=== PATIENT | female | born 1960 | race Caucasian/White ===

== ENCOUNTER → 2016-07-03 | Outpatient (CLI) | payer BC ==
[~2016-07-03] MED LIST: IBUP200C11 PO
--- NOTE | 2016-07-03 22:46 | HKNOTE ---
DATE OF SERVICE: 07/03/2016 The patient here for preoperative evaluation. She is scheduled to have right total hip replacement by the anterior approach on 07/04/2016. She has been cleared for surgery by Dr. Al So . Numerous questions were asked and answered. She has read my booklet on hip arthritis and hip rep lacement surgery. She has also seen my website, [employer]. She comes in with her fiance. S he understands the risks associated with using hospital blood. She is agreeable to using hospital b lood if needed. Numerous questions were asked and answered. The patient is remarkably flexible, an d I discussed with her that my chief worry is that she is going to dislocate her hip from putting th e hip through at extreme range of motion. Restrictions were discussed with her. Dictated By: RODOLFO WESLEY/JOE Conf#: [id number] DID#: [id number]
== END | disposition home or self-care (01) ==
LOC: HKI 14:17
DX: Z01.818 Encounter for other preprocedural examination (principal)
CPT/HCPCS: G0463

== ENCOUNTER 2016-07-04 05:42 | Inpatient (IN) | payer BC ==
--- NOTE | 2016-07-02 14:56 | PREOPHP ---
DATE OF ADMISSION: 07/04/2016 PREOPERATIVE INTERNAL MEDICINE CONSULTATION, MEDICAL HISTORY AND PHYSICAL The patient to have surgery with Dr. Jett Henao 07/04/2016. REASON FOR CONSULTATION: Consultation requested by Dr. Jett Henao for medical evaluation an d clearance of a 56-year-old woman about to undergo surgery on her right hip. Thank you, Dr. Henao, for allowing us to participate in the care of this patient. HISTORY OF PRESENT ILLNESS: Anisha Maxwell, a 56-year-old woman, problems with her hip, currently arcadio ng admitted for correction of the above problem. PAST MEDICAL HISTORY: Only prior surgeries have been a breast augmentation. Other than that, has h ad no surgeries, had 1 delivery which was vaginal. Other than that, has been doing relatively well. She has had, as mentioned above, no broken bones, no medical hospitalizations, and only takes p.r. n. medications for allergies and itching and pain. ALLERGIES: SHE IS NOT ALLERGIC TO ANY MEDICATIONS. SOCIAL HISTORY: The patient is single, has 1 son. She does not smoke. Alcohol socially. No coffe e. Usually has no difficulty sleeping at night and is employed. FAMILY HISTORY: Both parents are alive and well. Father is 81. Mother 79. Two brothers are also alive, one has blood pressure issues. Other than that, there is no family history of diabetes. Onl y hypertension. There is cancer in the family as well. REVIEW OF SYSTEMS: HEENT: Periodic tension headaches. CARDIORESPIRATORY: Denies any chest pain or shortness of breath. GASTROINTESTINAL: No melena or hematemesis. GENITOURINARY: No urgency, frequency. GYNECOLOGIC: Postmenopause. Up to date with her hearing aid fitter. MUSCULOSKELETAL: Positive for right hip pain. NEUROPSYCHIATRIC: Unremarkable. GENERAL HEALTH: As above. PHYSICAL EXAMINATION: VITAL SIGNS: The patient's blood pressure was 146/76, pulse was 92, respirations were 18, temperatu re 98.7, height 5 feet 3-1/2 inches, weight 127 pounds. GENERAL: The patient was noted to be a well-developed, well-nourished female, alert and cooperative , in no apparent acute distress, oriented to time, place, and person. HEAD, EARS, EYES, NOSE, AND THROAT: Head was atraumatic. Eyes: Pupils were equal, reactive to lig ht and accommodation. Fundi were benign. Tympanic membranes were unremarkable. Nose was negative. Mouth was unremarkable. Fair oral hygiene was present. NECK: Supple without any rigidity. Trachea was midline. Thyroid was unremarkable. Neck veins wer e flat. Carotid pulses were equal. No bruits were heard. BACK: Unremarkable. CHEST: Symmetrical breasts and axillary exam revealed bilateral breast implants, otherwise no merrill s being palpable. LUNGS: Clear to percussion and auscultation. HEART: PMI is in the fifth intercostal space at the midclavicular line. Regular sinus rhythm was n oted. No significant murmurs, rubs, or gallops being elicited. ABDOMEN: Soft, good bowel sounds were noted. No significant organomegaly, masses, or tenderness. GENITALIA: Normal female external genitalia. PELVIC/RECTAL: Per hearing aid fitter, unremarkable. EXTREMITIES: Not revealing clubbing, edema, or cyanosis. Peripheral pulses were physiologic. SKIN: Moist and warm without any eruptions. No gross lymphadenopathy was noted. NEUROLOGIC: Grossly intact. IMPRESSION: 1. Degenerative joint disease, right hip. 2. Allergies. 3. Tension headaches. 4. Cervical disk disease. 5. Stable health. LABORATORY DATA: Review of laboratory and other data revealed the following: The patient's ceramic chemist ne revealed normal electrolytes, random glucose of 120, normal BUN, creatinine, liver function ron ts, CBC, UA, PT, and PTT were normal. EKG revealed a rate of 90, otherwise normal, and chest x-ray done recently was within normal limits. DISCUSSION: Dr. Henao, I see no contraindication to this patient undergoing current proposed s urgery under desired form of anesthesia and will follow her along with you during her stay at [facility]. Thank you again, Dr. Henao, for allowing us to participate in care of this patient. Dictated By: PARIS WINN/JOE Conf#: [id number] DID#: [id number]
[2016-07-03 17:00] VITALS: BMI 48.0
[~2016-07-04] VITALS: Ht 160 cm; Wt 56.3 kg
[2016-07-04] VITALS (16 sets, daily range): BP systolic 81–133; BP diastolic 51–83; PULSE 64–144; RESP 12–22; Ht 160 cm; Wt 56.3 kg
[2016-07-04] MEDS ORDERED: VANCOMYCIN 1 GM (PMX) 250 ML IVPB ONE (06:00)
[2016-07-04] MEDS ORDERED: LACTATED RINGER'S 1,000 ML IV* SCH (06:00)
[2016-07-04] MEDS ORDERED: TRANEXAMIC ACID IVPB ONE (06:00)
[2016-07-04] MEDS ORDERED: ACETAMINOPHEN 1000MG/100ML IV 100 ML IVPB ONE (06:00)
[2016-07-04] MEDS ORDERED: ONDANSETRON 4 MG INJ IV ONE (06:00)
[2016-07-04] MEDS ORDERED: DEXAMETHASONE 4 MG/ML 1 ML INJ IV ONE (06:00)
[2016-07-04] MEDS ORDERED: SOD CHLORIDE 0.9% IVPB ONE (06:00)
[2016-07-04] MEDS ORDERED: oxyCODONE (CR) 10 MG TAB [oxyCONTIN] PO ONE (06:00)
[2016-07-04] MEDS ORDERED: LANSOPRAZOLE 30 MG CAP PO ONE (06:00)
[2016-07-04] MEDS ORDERED: CELECOXIB 200 MG CAP PO ONE (06:00)
[2016-07-04] MEDS ORDERED: ROPIVACAINE 0.2% 100ML BAG ONE (07:16)
[2016-07-04] MEDS ORDERED: GELATIN SIZE 100 SPONGE ONE (07:16)
[2016-07-04] MEDS ORDERED: HEPARIN 1000 UNITS/ML 10 ML INJ ONE (07:16)
[2016-07-04] MEDS ORDERED: VANCOMYCIN 1 GM INJ ONE (07:17)
[2016-07-04] MEDS ORDERED: POLYMYXIN B 500000 UNIT INJ ONE (07:17)
[2016-07-04] MEDS ORDERED: MIDAZOLAM 1 MG/ML 2 ML INJ ONE (07:42)
[2016-07-04] MEDS ORDERED: SOD CHLORIDE 0.9% IRR SCH ×2 (08:00)
[2016-07-04] MEDS ORDERED: TRANEXAMIC ACID IRR SCH ×2 (08:00)
[2016-07-04] MEDS ORDERED: HIP PAIN COCKTAIL VANCO INJ SCH ×7 (08:00)
[2016-07-04] MEDS ORDERED: PHENYLephrine (100 MCG/ML) 5ML SYG ONE ×2 (08:11→10:44)
[2016-07-04] MEDS ORDERED: SENNA/DOCUSATE NA (8.6MG/50MG) TAB PO PRN (08:30)
[2016-07-04] MEDS ORDERED: MEPERIDINE 10 MG/ML 30 ML PCA IV PRN (08:30)
[2016-07-04] MEDS ORDERED: DOCUSATE SODIUM 100 MG CAP PO ONE (08:30)
[2016-07-04] MEDS ORDERED: NA PHOSPHATE/BIPHOS 133 ML ENEMA PR PRN (08:30)
[2016-07-04] MEDS ORDERED: BETHANECHOL 25 MG TAB PO PRN (08:30)
[2016-07-04] MEDS ORDERED: oxyCODONE 5 MG TAB PO PRN (08:30)
[2016-07-04] MEDS ORDERED: HYDROmorphONE 0.2 MG/ML PCA IV PRN (08:30)
[2016-07-04] MEDS ORDERED: MAGNESIUM HYDROXIDE 30ML CUP PO PRN (08:30)
[2016-07-04] MEDS ORDERED: NACL 0.9% 3 ML SYG IV SCH (08:30)
[2016-07-04] MEDS ORDERED: ASPIRIN (EC) 325 MG TAB PO ONE (08:30)
[2016-07-04] MEDS ORDERED: DIPHENHYDRAMINE 50 MG INJ IM PRN (08:30)
[2016-07-04] MEDS ORDERED: NALOXONE (0.4 MG/ML) INJ IV PRN ×2 (08:30→10:30)
[2016-07-04] MEDS ORDERED: BISACODYL 10 MG SUPP PR PRN (08:30)
[2016-07-04] MEDS ORDERED: ROPIVACAINE 0.2% 20 ML VIAL ONE (08:49)
[2016-07-04] MEDS: ACETAMINOPHEN 1000MG/100ML IV 100 ML IVPB SCH ×2 (09:00→17:40)
[2016-07-04] MEDS ORDERED: BACITRACIN 50000 UNITS INJ IRR ONE (09:11)
[2016-07-04] MEDS ORDERED: DIPHENHYDRAMINE 50 MG INJ IV PRN (10:30)
[2016-07-04] MEDS ORDERED: MEPERIDINE 25 MG INJ IV PRN (10:30)
[2016-07-04] MEDS ORDERED: HYDROmorphONE (0.2 MG/ML) 10ML SYG IV PRN ×2 (10:30)
[2016-07-04] MEDS ORDERED: ONDANSETRON 4 MG INJ IV PRN (10:30)
[2016-07-04] MEDS ORDERED: FENTAnyl 50 MCG/ML VIAL IV PRN (10:30)
[2016-07-04] MEDS ORDERED: LIDOCAINE 2% (SDV) 5 ML INJ ONE (11:27)
[2016-07-04] MEDS ORDERED: PROPOFOL 20 ML ONE (11:27)
[2016-07-04] MEDS ORDERED: ROCURONIUM 50 MG INJ ONE (11:27)
[2016-07-04] MEDS ORDERED: DEXAMETHASONE 4 MG/ML 1 ML INJ ONE (11:28)
[2016-07-04] MEDS ORDERED: ONDANSETRON 4 MG INJ ONE (11:28)
[2016-07-04] MEDS ORDERED: METOCLOPRAMIDE 10 MG INJ ONE (11:28)
--- NOTE | 2016-07-04 11:47 | RADRPT ---
PROCEDURE: Right hip x-rays series CLINICAL INDICATION: Arthroplasty TECHNIQUE: 5 images obtained intraoperatively during a hip arthroplasty procedure. COMPARISON: None available FINDINGS: 5 images were obtained intraoperatively for localization during a hip hemiarthroplasty. 24 seconds of fluoroscopy time was utilized by the physician Dr. Henao during the procedure in progress. IMPRESSION: 5 images and 24 seconds of fluoroscopy used intraoperatively for localization during a hip hemiarthr oplasty. .Christopher Lincoln MD, MD Date Time Electronically viewed and signed by .Christopher Lincoln MD, on 07/04/2016 11:47 .B/
[2016-07-04] MEDS: ONDANSETRON 4 MG INJ IV SCH ×3 (12:17→21:14)
[2016-07-04] MEDS: CEFAZOLIN 1 GM/50 ML (PMX) 50 ML IVPB SCH ×2 (12:17→18:25)
--- NOTE | 2016-07-04 12:40 | RADRPT ---
PROCEDURE: XR Right Hip. CLINICAL INDICATION: Right hip pain. Postop. TECHNIQUE: Single frontal view. COMPARISON: Intraoperative imaging done earlier the same day. FINDINGS: There is a right hip total arthroplasty. This appears satisfactory with no fracture, dislocation or loosening. There is no lytic lesion. Surgical drains and gas are noted in the soft tissues from the recent surgery. IMPRESSION: 1. Satisfactory postoperative appearance of the right hip. RPTAT: QQ .Abe Gill MD, MD Date Time Electronically viewed and signed by .Abe Gill MD, MD on 07/04/2016 12:40 .R/
[2016-07-04 13:16] LABS: ADD UMIC YES; URINE BILIRUBIN (Dip) NEGATIVE (NEGATIVE); URINE BLOOD (Dip) 1+ (NEGATIVE); URINE COLOR LT. YELLOW (YELLOW); URINE GLUCOSE (Dip) NEGATIVE (NEGATIVE); URINE KETONES (Dip) 40 (NEGATIVE); URINE LEUKOCYTE ESTERASE (Dip) NEGATIVE (NEGATIVE); URINE NITRITE (Dip) NEGATIVE (NEGATIVE); URINE TOTAL PROTEIN (Dip) NEGATIVE (NEGATIVE); URINE UROBILINOGEN (Dip) 0.2 E.U./dL (0.1-1.0)
[2016-07-04 14:02] LABS: BACTERIA,URINE FEW
--- NOTE | 2016-07-04 14:11 | OPR ---
DATE OF OPERATION: 07/04/2016 SURGEON: Jett Henao MD SHOE STAINER: ANESTHESIOLOGIST: Dr. Mcfarland PREOPERATIVE DIAGNOSES: 1. Severe degenerative osteoarthritis of the right hip. 2. Congenital dysplasia of the right hip. POSTOPERATIVE DIAGNOSES: 1. Severe degenerative osteoarthritis of the right hip. 2. Congenital dysplasia of the right hip. OPERATION PERFORMED: Right total hip replacement by the anterior route. Computer-assisted surgery using the TransferGo digital imaging computer. FINDINGS AT SURGERY: The patient was found to have exceedingly severe degenerative osteoarthritis o f the right hip. The femoral head showed evidence of osteonecrosis as well as severe degenerative c hanges affecting the weightbearing surface. The patient's bone quality was satisfactory for a femal e of her age. JUSTIFICATION FOR SURGERY: Patient has endstage osteoarthritis of the right hip. There can be no s cientific expectation that any further conservative measures would give this patient any relief from her incapacitating pain. DESCRIPTION OF PROCEDURE: The patient was given intravenous antibiotics approximately 1 hour prior to surgery. An epidural anesthetic was initiated in the pre-anesthesia area. The patient was then moved to the operating room and transferred to a [place] table. General anesthesia was induced with in tubation and full muscle paralysis. Plain and digital x-rays were obtained of the pelvis and the op erative hip and stored in the computer. Measurements were made on the operative hip to determine th e degree of leg length and offset. The intent was to use the operative hip as the basic template fo r restoring the geometry of the operative hip (i.e., the opposite hip was not used as the template). On the pelvic x-ray, the correct orientation of the pelvis for surgery was determined. Note that the TransferGo computer was used throughout for making all leg length and angular measurements. The operative thigh, leg and lower abdomen were prepared and draped in the usual sterile fashion. A n oblique incision was made over the lateral aspect of the right thigh. Incision commenced 3 cm dis mihaela and 3 cm posterior to the anterior superior iliac spine. The total length of the incision was a pproximately 18 mm. The incision was deepened through the subcutaneous fat to expose the fascia ove r the tensor muscle. The fascia was opened to expose the muscle. Bleeding points were cauterized t hroughout by diathermic coagulation. The fascia over the tensor was incised by blunt and digital re section. The interval was found between the tensor muscle and the anterior capsule as well as the r ectus muscle. Superior and inferior cobra retractors were now placed outside the capsule to expose the anterior surface of the capsule. A third cobra retractor was placed over the brim of the pelvis . The reflected head of rectus was first elevated with a Meyer elevator. The anterior capsule was incised along the length of the intratrochanteric line with the hip externa lly rotated. The incision extended around the proximal femur to the lesser trochanter. The incisio n was now extended vertically to the edge of the acetabulum. The capsular incision was extended pema ng the anteromedial extent of the anterior rim of the acetabulum. A cobra retractor was placed insi de the capsule medially. The lateral aspect of the anterior capsule was incised and a second cobra retractor was placed inside the capsule around the superior femoral neck. Three turns of traction were placed on the operative leg. The femoral head was now freed from the a cetabulum using a skid. The remaining superior and anterior capsule was incised and the femoral nec k was then incised. A corkscrew was inserted into the femoral head from the anterior aspect of the femoral head. Using the corkscrew as a handle and using a skid, the hip was now completely dislocat ed. The hip was reduced. An osteotomy of the femoral neck was made at the location determined by preope rative templating. The femoral head was now removed. By suitable retraction, the acetabulum was exposed. Soft tissues around the folia removed. The janet tabulum was enlarged and deepened to 47 mm. Note that the socket was extremely shallow, and in orde r to get coverage for the acetabular component, the reaming had to be taken right to the medial wall of the acetabulum. At the very apex of the acetabular cavity, there was a soft tissue membrane ind icating that we had just reached the medial wall. Powdered bone grafts were obtained from the femor al head and packed into this space. The last acetabular reamings were inserted under fluoroscopic c ontrol and the correct orientation of the socket and if the reaming were determined by the [employer] and direct x-ray visualization. The acetabular component was now installed with an orientat ion of 34 degrees of abduction and 24 degrees of anteversion. The TransferGo computer was used for bucky ing these measurements. The proximal femur was now exposed by hyperextending and adducting the hip joint. A retractor was p laced posterior to the femoral neck so as to retract the proximal femur laterally. A hook was then placed around the proximal femur deep to the tensor muscle and as proximal as possible. The hook wa s attached to the table endy and the femur was elevated as high as we could go without force being a pplied to the femur. The superior and proximal femoral capsules were now incised. The cobra retractor was placed behind the posterior rim of the acetabulum. A Steinmann pin was driven into the pelvis superior to the janet tabulum to retract the soft tissues. A third cobra was placed over the rim of the acetabulum and th e fourth cobra was placed along the medial aspect of the acetabulum. This allowed further mobilizat ion of the proximal femur. A canal finder was used to find the canal. The proximal femur is now br oached starting with the smallest broach and progressively increasing until we felt we could go no f urther. At this point, the size 10 broach was left in place and the hip was reduced. X-rays were t aken and these x-rays showed that we could broach up 1 more size. The hip was reduced with the shor test femoral head and neck assembly and measurements were made to determine what neck lengths and of fset changes were still needed. The hip was dislocated. The next size broach (size 11) was now installed. This broach was found to be completely stable. The hip was reduced using the +9 mm femoral head and neck assembly and the s ize 11 broach. Measurements indicated that the leg lengths were totally unchanged. The offset was totally unchanged. This was felt to be an appropriate combination. The foot was now disconnected f rom the [place] table and covered with sterile drapes. The hip was then put through an extreme range o f motion and found to be completely stable at the limits of motion. This showed that the hip was to tally stable in the anterior aspect of the socket. As trial components were removed, the permanent plastic acetabular component was installed. This wa s followed by installing the permanent femoral component. The table was now returned to a neutral p osition and the hip was dislocated. The wound was frequently irrigated throughout the procedure wit h normal saline containing antibiotics using pulsatile lavage. The permanent femoral component was installed, it fit perfectly and appeared to be completely stable . The permanent femoral head was installed and the hip was reduced. Superficial and deep Hemovac drains were placed. Soft tissues around the hip were injected with a m ixture of Naropin, Toradol, morphine and clonidine for pain management. The deep tissues were now c losed using interrupted Vicryl. The subcutaneous tissues were closed using a Quill type stitch. Th e skin was closed using sierra. The usual sterile dressings were applied and an abduction pillow was placed between the patient's le gs before transferring her to a [facility]. The patient returned to the recovery room in stable conditi on. There were no problems or complications throughout this operation as far as is known. Although multiple x-rays were taken in the operating room and saved, the permanent x-ray record was obtained in the recovery room to be sure that the hip did not dislocate in transfer. IMPLANT COMPONENT INFORMATION: Femoral component: KA11 [place]. Acetabular component: Femoral head size: 32 mm. Femoral neck size: +9 mm. Implant tank hoop bender: [employer] [place], [place]. Leg length: Unchanged. Offset: Unchanged. Reinfusion was used. The total blood loss was approximately 350 mL and 150 were recovered and reinf used as packed cells. Dictated By: JETT WESLEY/JOE Conf#: [id number] DID#: [id number]
[2016-07-04] MEDS: DEXTROSE 5%-LR 1,000 ML IV SCH ×2 (14:32→20:52)
--- NOTE | 2016-07-04 14:56 | CONS ---
DATE OF ADMISSION: 07/04/2016 DATE OF CONSULTATION: 07/04/2016 POSTOPERATIVE CONSULTATION FOLLOWUP The patient had surgery with Dr. Jett Henao 07/04/2016. HISTORY OF PRESENT ILLNESS: The patient seen in the recovery room, arousable, answers questions myron ropriately. No particular issues at this point in time. OBJECTIVE: VITAL SIGNS: The patient is afebrile, pulse is 80, respirations 18, blood pressure 122/72, O2 sat 9 9%. HEENT: Unremarkable. LUNGS: Clear. HEART: Reveals a regular rhythm. The rest of the exam is unremarkable. IMPRESSION: 1. Status post total hip replacement on the right side. 2. History of allergies and tension headaches and cervical disk disease, stable. 3. Stable health. DISCUSSION: Plan per Dr. Henao, will be going up to floor care. We will follow her along with you during her stay at [facility]. Thank you again, Dr. Henao, for allowing us to participate in the care of this patient. Dictated By: PARIS MOTLEY MD SS/NTS Conf#: [id number] DID#: [id number]
[2016-07-04] MEDS ORDERED: BACITRACIN 50000 UNITS INJ ONE (17:09)
[2016-07-04] MEDS: oxyCODONE 5 MG TAB PO PRN ×2 (19:29→22:49)
[2016-07-04] MEDS: ZOLPIDEM 5 MG TAB PO PRN (23:32)
[2016-07-05 00:16] VITALS: BP 111/64; RESP 18
[2016-07-05] MEDS: CEFAZOLIN 1 GM/50 ML (PMX) 50 ML IVPB SCH (00:42)
[2016-07-05] MEDS: ACETAMINOPHEN 1000MG/100ML IV 100 ML IVPB SCH ×3 (00:42→17:00)
[2016-07-05] MEDS: ONDANSETRON 4 MG INJ IV SCH ×2 (03:00→06:47)
[2016-07-05] MEDS: oxyCODONE 5 MG TAB PO PRN ×5 (04:44→19:28)
[2016-07-05] MEDS: DEXTROSE 5%-LR 1,000 ML IV SCH ×2 (04:45→21:52)
[2016-07-05 05:20] LABS: BASOPHILS % 0.4 % (0.0-2.0); EOSINOPHILS % 0.1 % (0.0-7.0); HEMATOCRIT 24.9 % (37.0-47.0); HEMOGLOBIN 8.5 g/dl (12.0-16.0); LYMPHOCYTES # 1.7 10^3/ul (0.8-2.9); LYMPHOCYTES % 21.7 % (15.0-51.0); MEAN CORPUSCULAR HEMOGLOBIN 35.5 pg (29.0-33.0); MEAN CORPUSCULAR HGB CONC 34.2 g/dl (32.0-37.0); MEAN CORPUSCULAR VOLUME 103.7 fl (82.0-101.0); MEAN PLATELET VOLUME 7.7 fl (7.4-10.4); MONOCYTE # 0.7 10^3/ul (0.3-0.9); MONOCYTES % 9.2 % (0.0-11.0); NEUTROPHIL # 5.3 10^3/ul (1.6-7.5); NEUTROPHILS % 68.6 % (39.0-77.0); PLATELET COUNT 179 10^3/UL (140-440); RED CELL DISTRIBUTION WIDTH 14.2 % (11.5-14.5); UNCORRECTED WBC 7.8 10^3/ul (4.8-10.8); WHITE BLOOD COUNT 7.8 10^3/ul (4.8-10.8)
[2016-07-05 05:55] LABS: CONDITION 1; LH ANALYZER COMMENTS 1
[2016-07-05] MEDS ORDERED: KETOROLAC 30 MG INJ INJ PRN (06:00)
[2016-07-05] MEDS ORDERED: BUPIVACAINE 0.25%/EPI (SDV) 30 ML INJ INJ PRN (06:00)
[2016-07-05] MEDS: DEXAMETHASONE 4 MG/ML 1 ML INJ IV SCH (06:47)
[2016-07-05] MEDS: PANTOPRAZOLE (EC) 40 MG TAB PO SCH (06:47)
[2016-07-05 07:15] VITALS: BP 106/62; RESP 18
[2016-07-05] MEDS: ASPIRIN (EC) 325 MG TAB PO SCH ×2 (08:49→19:34)
[2016-07-05] MEDS: FERROUS FUMARATE (SR) TAB PO SCH ×2 (08:50→19:30)
[2016-07-05] MEDS: CELECOXIB 200 MG CAP PO SCH ×2 (08:50→19:28)
[2016-07-05] MEDS: DOCUSATE SODIUM 100 MG CAP PO SCH ×2 (09:00→19:29)
--- NOTE | 2016-07-05 17:08 | PN ---
DATE: 07/05/2016 Postoperative day #1: Patient underwent a right hip replacement yesterday. She was up and about with physical therapy yesterday. She also had physical therapy this morning. She has had some pain in the right thigh. Otherwise, she is making good progress. She believes she can get in and out o f bed by herself at this point if she wanted to, but she has not done so yet. On physical examination, the patient's wound was clean and healing well. New dressings were applie d. The Hemovac drain was removed. LABORATORY DATA: Hemoglobin 8.5, white cell count 7.8. Temperature normal. Dictated By: RODOLFO WESLEY/JOE Conf#: [id number] DID#: [id number]
[2016-07-05 19:36] VITALS: BP 115/73; PULSE 80; RESP 17
[2016-07-05] MEDS: ZOLPIDEM 5 MG TAB PO PRN (20:08)
[2016-07-06] MEDS: oxyCODONE 5 MG TAB PO PRN ×4 (00:35→12:25)
[2016-07-06] MEDS: ACETAMINOPHEN 1000MG/100ML IV 100 ML IVPB SCH (01:00)
[2016-07-06 05:13] LABS: BASOPHILS % 0.3 % (0.0-2.0); EOSINOPHILS # 0.1 10^3/ul (0.0-0.5); HEMATOCRIT 23.9 % (37.0-47.0); HEMOGLOBIN 8.2 g/dl (12.0-16.0); LYMPHOCYTES # 2.1 10^3/ul (0.8-2.9); LYMPHOCYTES % 31.6 % (15.0-51.0); MEAN CORPUSCULAR HEMOGLOBIN 35.9 pg (29.0-33.0); MEAN CORPUSCULAR HGB CONC 34.5 g/dl (32.0-37.0); MEAN CORPUSCULAR VOLUME 104.2 fl (82.0-101.0); MEAN PLATELET VOLUME 7.8 fl (7.4-10.4); MONOCYTE # 0.7 10^3/ul (0.3-0.9); MONOCYTES % 10.1 % (0.0-11.0); NEUTROPHIL # 3.7 10^3/ul (1.6-7.5); PLATELET COUNT 155 10^3/UL (140-440); RED BLOOD COUNT 2.29 10^6/ul (4.20-5.40); RED CELL DISTRIBUTION WIDTH 13.9 % (11.5-14.5); UNCORRECTED WBC 6.6 10^3/ul (4.8-10.8); WHITE BLOOD COUNT 6.6 10^3/ul (4.8-10.8)
[2016-07-06 05:24] LABS: CONDITION 1
[2016-07-06 05:25] LABS: LH ANALYZER COMMENTS 1
[2016-07-06 07:40] VITALS: BP 96/61; RESP 16
[2016-07-06] MEDS: DOCUSATE SODIUM 100 MG CAP PO SCH (09:12)
[2016-07-06] MEDS: CELECOXIB 200 MG CAP PO SCH (09:13)
[2016-07-06] MEDS: ASPIRIN (EC) 325 MG TAB PO SCH (09:13)
[2016-07-06] MEDS: FERROUS FUMARATE (SR) TAB PO SCH (09:13)
[2016-07-06] MEDS: DEXAMETHASONE 4 MG/ML 1 ML INJ IV SCH (09:13)
[2016-07-06] MEDS: PANTOPRAZOLE (EC) 40 MG TAB PO SCH (09:13)
[2016-07-06] MEDS: DEXTROSE 5%-LR 1,000 ML IV SCH (10:22)
[2016-07-06 11:25] VITALS: BP 103/61; RESP 16
--- NOTE | 2016-07-06 11:42 | CONS ---
Date/Time of Note Date/Time of Note DATE: 07/06/16 TIME: 11:36 Assessment/Plan Assessment/Plan Problems: (1) History of total hip replacement Comment: Patient status post right total hip replacement. Clinically doing well. Episode this am during PT with tachypnea and light headedness. Now resolved. Hb 8 which may have contributed to episode. Will get ECG. If normal will continue to plan for scheduled discharge. Qualifiers: Laterality: right Qualified Code: Z96.641 - History of total hip replacement, right Consultation Date/Type/Reason Admit Date/Time Jul 04, 2016 at 05:42 Initial Consult Date 24 HR Interval Summary Free Text/Dictation Patient with episode of tachypnea during PT this morning. Now feeling better. Denies SOB, chest pain. States that since admission been on an extremely low carb diet. Exam/Review of Systems Vital Signs Vitals Vital Signs Date Time Temp Pulse Resp B/P Pulse Ox O2 Delivery O2 Flow Rate FiO2 07/06/16 11:25 97.5 74 16 103/61 93 07/05/16 19:36 Room Air 07/04/16 11:47 6.0 Intake and Output 07/05/16 07/05/16 07/06/16 14:59 22:59 06:59 Intake Total 150 ml 800 ml 300 ml Output Total 0 ml Balance 150 ml 800 ml 300 ml Exam Constitutional: alert, oriented, well developed Eyes: EOMI, PERRL, nl conjunctiva Neck: supple Respiratory: clear to auscultation Cardiovascular: regular rate and rhythm Gastrointestinal: soft Musculoskeletal: nl extremities to inspection Extremities: normal pulses Results Result Diagram: 07/06/16 0436 Results 24 hrs Laboratory Tests Test 07/06/16 04:36 Basophils # 0.0 Basophils % 0.3 Blood Morphology Comment Eosinophils # 0.1 Eosinophils % 1.0 Hematocrit 23.9 L Hemoglobin 8.2 L Lymphocytes # 2.1 Lymphocytes % 31.6 Mean Corpuscular Hemoglobin 35.9 H Mean Corpuscular Hemoglobin Concent 34.5 Mean Corpuscular Volume 104.2 H Mean Platelet Volume 7.8 Monocytes # 0.7 Monocytes % 10.1 Neutrophils # 3.7 Neutrophils % 57.0 Nucleated Red Blood Cells # 0.0 Nucleated Red Blood Cells % 0.0 Platelet Count 155 Red Blood Count 2.29 L Red Cell Distribution Width 13.9 White Blood Count 6.6 Medications Medications Current Medications Dextrose/Lactated Ringer's (D5-Lr) 1,000 ml @ 80 mls/hr [id number] IV Last administered on 07/05/16 04:45; Admin Dose 80 MLS/HR; Start 07/04/16 at 08:22 Oxycodone HCl (Roxicodone) 20 mg Q3H PRN PO PAIN LEVEL 8-10 Last administered on 07/06/16 09:12; Admin Dose 20 MG; Start 07/04/16 at 08:30 Oxycodone HCl (Roxicodone) 10 mg Q3H PRN PO PAIN LEVEL 4-7; Start 07/04/16 at 08:30 Zolpidem Tartrate (Ambien) 5 mg HS PRN PO INSOMNIA Last administered on 20:08; Admin Dose 5 MG; Start 07/04/16 at 08:30 Aspirin (Ecotrin) 325 mg BID PO Last administered on 07/06/16 09:13; Admin Dose 325 MG; Start 07/05/16 at 09:00 Celecoxib (Celebrex) 200 mg BID PO Last administered on 07/06/16 09:13; Admin Dose 200 MG; Start 07/05/16 at 09:00 Dexamethasone (Decadron) 4 mg DAILY@07 IV Last administered on 07/06/16 09:13 ; Admin Dose 4 MG; Start 07/05/16 at 07:00; Stop 07/08/16 at 06:59 Pantoprazole (Protonix Tab) 40 mg DAILY@06 PO Last administered on 07/06/16 09 :13; Admin Dose 40 MG; Start 07/05/16 at 06:00 Docusate Sodium/ Ferrous Fumarate (Yared-Sequels) 1 tab BID PO Last administered on 07/06/16 09:13; Admin Dose 1 TAB; Start 07/05/16 at 09:00 Docusate Sodium (Colace) 200 mg BID PO Last administered on 07/06/16 09:12; Admin Dose 200 MG; Start 07/05/16 at 09:00; Stop 07/07/16 at 21:01 Simethicone (Mylicon) 80 mg TID PRN PO DISTENSION/GAS/BLOATING; Start 07/04/16 at 08:30 Senna/Docusate Sodium (Senokot-S) 2 tab BID PRN PO CONSTIPATION; Start at 08:30 Magnesium Hydroxide (Milk Of Mag) 30 ml HS PRN PO CONSTIPATION; Start 07/04/16 at 08:30 Bisacodyl (Dulcolax Supp) 10 mg DAILY PRN NM CONSTIPATION; Start 07/04/16 at 08 :30 Sodium Biphosphate/ Sodium Phosphate (Fleet Enema) 133 ml DAILY PRN NM CONSTIPATION; Start 07/04/16 at 08:30 Diphenhydramine HCl (Benadryl) 25 mg Q4H PRN IM ITCHING OR RASH; Start at 08:30 Ketorolac Tromethamine (Toradol) 30 mg DAILY@06 PRN INJ ADMINSTER BY SURGEON ONLY; Start 07/05/16 at 06:00; Stop 07/09/16 at 05:59 Bupivacaine HCl/ Epinephrine Bitart (Marcaine 0.25%/ Epi (Sdv) 30 ml) 20 ml DAILY@06 PRN INJ ADMINSTER BY SURGEON ONLY; Start 07/05/16 at 06:00; Stop 07/09 at 05:59 Naloxone HCl (Narcan) 0.2 mg Q2M PRN IV DECREASED REPIRATORY RATE; Start at 08:30 Naloxone HCl (Narcan) 0.2 mg Q2M PRN IV FOR RESP RATE 8 OR LESS; Start at 10:30 MORIAH PEDRAZA MD Jul 06, 2016 11:42
--- NOTE | 2016-07-06 11:45 | PDOCDIS ---
Discharge Instructions CONDITION Patient Condition: Good HOME CARE INSTRUCTIONS: Diet Instructions: Regular ACTIVITY: Activity Restrictions: Slowly Increase Activity Rest between Activity Avoid heavy lifting Do not Drive Do not operate Machinery Do not operate Power Tool Avoid Heavy Housework Bathing Restrictions: Shower FOLLOW UP/APPOINTMENTS Appointments As per Dr. Carr instructions SCHOOL/WORK RELEASE May return to School/Work with: as per Dr. Henao's instructions MORIAH PEDRAZA MD Jul 06, 2016 11:45
--- NOTE | 2016-07-06 16:01 | PN ---
DATE: 07/06/2016 SUBJECTIVE: Patient is on her fourth day from her . She is making excellent progress. She is independent with her walker. She gets in and out of bed by herself. PHYSICAL EXAMINATION: The wound looks excellent. The dressings were changed. Temperature is normal . LABS: Hemoglobin is 12.5, white count 6.4. ASSESSMENT: Patient is to be discharged to home. She will be seen again in the office in 2 weeks' t [place]. Dictated By: RODOLFO WESLEY/JOE Conf#: [id number] DID#: [id number]
--- NOTE | 2016-07-06 16:42 | CONS ---
DATE OF ADMISSION: 07/04/2016 DATE OF CONSULTATION: 07/06/2016 HISTORY OF PRESENT ILLNESS: Patient is alert only complaint is that the surgical site has a little bit of pain, looking forward to going home, however. PHYSICAL EXAMINATION: VITAL SIGNS: Reveals the following: Temperature 97.5, pulse 74, respirations 16, blood pressure 10 3/61, O2 sat 93% on room air. HEENT: Unremarkable. LUNGS: Clear. HEART: Reveals a regular rhythm. The rest of the exam is unremarkable. IMPRESSION: 1. Status post total hip replacement on the right side. 2. History of allergies, tension headaches and cervical disk disease. 3. Stable at this point. DISCUSSION: Review of laboratory and other data revealed the following: Patient's white count 6.5, hemoglobin is 8.2, yesterday's was 8.5. Other than that, the patient is doing well and will be dis charged by Dr. Henao assuming she is cleared by physical therapy. Thank you again, Dr. Henao, for allowing us to participate in the care of this patient. Dictated By: PARIS WINN/JOE Conf#: [id number] DID#: [id number]
--- NOTE | 2016-07-08 11:05 | RADRPT ---
Vent Rate: 75 bpm RR Interval: 0 msec ME Interval: 132 msec QRS Duration: 90 msec QT Interval: 362 msec QTC Interval: 404 msec P-R-T [place]: 45 - 70 - 59 degrees Normal sinus rhythm Normal ECG Electronically Signed By: Dandy Monroe [id number]
== END 2016-07-06 14:10 | disposition home health service (06) | DRG 470 ==
LOC: REC 05:42 → MS1 13:25
PROC: 0SR904A Replacement of Right Hip Joint with Ceramic on Polyethylene Synthetic Substitute, Uncemented, Open Approach (ICD-10-PCS; principal; 2016-07-04 08:00)
DX: M16.11 Unilateral primary osteoarthritis, right hip (principal); M50.90 Cervical disc disorder, unspecified, unspecified cervical region; Q65.89 Other specified congenital deformities of hip; R06.82 Tachypnea, not elsewhere classified
CPT/HCPCS: 73500; 73530; 81001; 81003; 85025; 86850; 86900; 86901; 86920; 87081; 87086; 88304; 88311; 93005; 97116; 97164; 97165; 97530; C1713; C1753; C1776; J0131; J0171; J0690; J0735; J1100; J1644; J1885; J2250; J2274; J2370; J2405; J2765; J2795; J3010; J3370; J7120; J7121

== ENCOUNTER → 2016-07-11 | Outpatient (CLI) | payer BC | END | disposition home or self-care (01) | LOC: HKI 13:13 | DX: Z02.9 Encounter for administrative examinations, unspecified (principal) ==

== ENCOUNTER → 2016-07-29 | Outpatient (CLI) | payer BC ==
--- NOTE | 2016-07-30 06:49 | HKNOTE ---
DATE OF SERVICE: 07/29/2016 SUBJECTIVE: A 56-year-old female who presents today for 3 weeks postoperative appointment status post right total hip arthroplasty via anterior route on 07/04. Upon discharge from the hospital, patient had significant swelling throughout the right lower extremity in which the patient was sent for stat ultrasound. The patient states that there was no evidence of right lower extremity deep venous thrombosis. The study was within normal limits. The patient states that about 1 to 2 days after Venous doppler exam, swelling to the right lower extremity is significantly decreased. The patient believes that the swelling was due to adverse reaction with medication. The patient had increased nausea and altered mental state while taking Gabapentin. Denies any calf pain, shortness of breath or chest pain. In regards to the right hip, the patient denies any pain complaints. She does have complaints of stiffness. She has returned to ambulation without assisted ambulatory device but continues with slight limp. Patient states that slight limp has gradually and significantly improved comparing to prior to the surgery. Denies any falls, status post surgery. In regards to surgery, patient is very pleased. OBJECTIVE: VITAL SIGNS: Blood pressure is 131/86, temperature is 98.8 degrees, pulse is 91 , respiratory rate is 12, height is 5 feet 3 inches, weight is 124 pounds. GENERAL: Well healed scarring to the anterior right hip. Normal sensory examination to light touch around the wound. Mild swelling to the wound. No redness or signs of infection. No tenderness to palpation. The patient is able to flex the hip up to 120 degrees and extend to 0 degrees, abduction is 0 to 30 degrees with adduction of 0 to 10 degrees. Slight limp on gait, but nonantalgic. There is 5/5 strength to the hip flexors, extensors, adductors and abductors. Imaging: Right lower extremity venous Doppler performed on 07/11/2016 with an impression of: No evidence of right lower extremity deep venous thrombosis and study is within normal limits. PLAN: 1. The patient continues to do well status post surgery. Advised to continue taking aspirin for DVT prophylaxis 325 mg twice a day. 2. The patient states that she has stopped taking Celebrex and gabapentin. 3. Encourage to continue with Celebrex for another 3 weeks to decrease inflammation. The patient may stop taking Gabapentin due to significant side effects. 4. The patient informs me that she has been driving for the past week. Significant concerns and recommendation to stop driving for 6 weeks status post surgery was discussed with the patient and she states understanding. 5.Continue pain medications as needed. 6. 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 Restrictions in regards to walking around the class but no intensity activity or aggressive cycling. The patient may only walk around and instruct her class. 7.The patient will follow up at 6 weeks postop visit which is 08/19/2016 for repeat evaluation as well as x-ray imaging. Anticipate discontinuing medications at that point. Dental prophylaxis are given today. The patient was given our standard plastic card containing instructions for the use of prophylactic antibiotics as a guideline should infection develop anywhere in the body, there be the need for manipulation or scoping of the genitourinary tract or gastrointestinal tract, or for prophylaxis for dentistry. These instructions pertain for the rest of the patient's life. Dictated By: MALLORY PENN for RODOLFO KIM MD, KP/JOE Conf#: [id number] DID#: [id number] MTDD
== END | disposition home or self-care (01) ==
LOC: HKI 14:01
DX: Z47.1 Aftercare following joint replacement surgery (principal); Z96.641 Presence of right artificial hip joint
CPT/HCPCS: G0463

== ENCOUNTER → 2016-08-19 | Outpatient (CLI) | payer BC ==
--- NOTE | 2016-08-19 14:20 | RADRPT ---
PROCEDURE: XR pelvis/right hip. CLINICAL INDICATION: Hip pain TECHNIQUE: AP pelvis/lateral right hip view performed. COMPARISON: 05/14/2016 FINDINGS: There is a right total hip replacement. There is no evidence of loosening of the prosthesis. There is moderate left hip osteoarthrosis. This is associated with joint space narrowing, subchondra l sclerosis and osteophytosis. There is normal osseous mineralization. No fractures or osseous les ions are identified. The soft tissues are unremarkable. IMPRESSION: Right total hip replacement. Moderate left hip osteoarthrosis. RPTAT: HGDB .Christopher Lincoln MD, Date Time Electronically viewed and signed by .Christopher Lincoln MD, on 08/19/2016 14:20 .B/
--- NOTE | 2016-08-19 17:28 | HKNOTE ---
DATE OF SERVICE: 08/19/2016 SUBJECTIVE: A 56-year-old female who presents today for 6-week postop visit status post right total hip replacement via anterior route performed on 2016. In regards to the hip, patient continues to do well as she has returned to normal function. She does experience occasional pain of around 3/10 on the pain scale. 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 The patient has noticed some swelling to the surgical wound. No redness. Denies any discharge. Mild discomfort to the surgical wound. The patient has returned to normal gait. She states that 2 weeks postop she was able to ambulate independently. Continues with aspirin 325 mg b.i.d. Now, she is taking Advil lfwk-[id number]-kruxhby as needed for pain complaints, which has been helping. VITAL SIGNS: Blood pressure 143/92, temperature 99.5 degrees, pulse 94, respiratory rate 12, height 5 feet 3 inches, weight 124 pounds. PHYSICAL EXAMINATION: The patient has full range of motion on flexion and extension of the right hip. Full range of motion with abduction and adduction. No pain with internal/external rotation. Mild swelling to the surgical wound. No tenderness to palpation. Mild numbness along the lateral side of the thigh. 5/5 strength on resistance with flexion, extension, abduction and adduction. No calf pain. IMAGING: X-ray to the right hip on 08/19/2015 showing all components well aligned and appear to be well attached and integrated to the bone. No signs of any lucency between metal and bone. ASSESSMENT AND PLAN: The patient is in possession of antibiotics card. Dental prophylaxis discussed in detail again today. Due to swelling and soreness to the surgical wound, Dr. Kim has performed aspiration with fluid sent for cell count and culture and sensitivity. Amoxicillin 500 mg prescription given for patient today with instructions to take 4 tablets over the next 24 hours. The patient also provided with additional tablets, #18 tablets for future use prior to any dental procedures. The patient may discontinue restrictions. The patient may discontinue DVT prophylaxis. The patient will follow up in 1 week for repeat evaluation and monitoring of surgical wound. The patient will also follow up in 4-1/2 months for 6-month postop visit. The patient was given our standard plastic card containing instructions for the use of prophylactic antibiotics as a guideline should infection develop anywhere in the body, there be the need for manipulation or scoping of the genitourinary tract or gastrointestinal tract, or for prophylaxis for dentistry. These instructions pertain for the rest of the patient's life. Dictated By: MALLORY PENN for RODOLFO KIM MD, KP/JOE Conf#: [id number] DID#: [id number] [facility]
== END | disposition home or self-care (01) ==
LOC: HKI 13:59
DX: Z47.1 Aftercare following joint replacement surgery (principal); Z96.641 Presence of right artificial hip joint
CPT/HCPCS: 20610; 73502

== ENCOUNTER → 2016-08-26 | Outpatient (CLI) | payer BC ==
--- NOTE | 2016-08-27 20:32 | HKNOTE ---
DATE OF SERVICE: 08/26/2016 HISTORY: Patient comes in for a recheck. The fluid taken from her right hip at the last visit is r eported as showing color young. White cell count of 22,400, moderate white cells seen; no organisms seen. No anaerobes isolated. No gross obtained. PHYSICAL EXAMINATION: VITAL SIGNS: Her temperature is 98.9, blood pressure 175/100. GENERAL: She walks without a walking aid. She has no pain. RIGHT HIP: A full range of motion without pain. There is a swelling over the lateral aspect of the right thigh. MANAGEMENT: Under sterile conditions, the swelling was aspirated; 60 mL of murky fluid were aspirat ed. The fluid is being sent for cell count, culture and sensitivity. The patient will be called wi th the results. Dictated By: RODOLFO WESLEY/JOE Conf#: [id number] DID#: [id number]
== END | disposition home or self-care (01) ==
LOC: HKI 14:33
DX: Z47.89 Encounter for other orthopedic aftercare (principal)
CPT/HCPCS: 20610

== ENCOUNTER → 2016-08-28 | Outpatient (CLI) | payer BC ==
--- NOTE | 2016-08-29 06:53 | HKNOTE ---
DATE OF SERVICE: 08/28/2016 SUBJECTIVE: The patient was seen 2 days ago. A swelling along the lateral side of the thigh was as pirated. The fluid was sent to the lab. The patient comes back today stating that the thigh is swo llen again and she wants me to remove the fluid. So far, the fluid has shown "many white blood cells." Straw yellow coloration. 9 eosinophils [!] No organisms seen. So far, no organisms have been grown in the culture. Of interest is that the fluid is "positive for calcium pyrophosphate crystals." OBJECTIVE: On examination, temperature is 99.3 today, compared to 98.9 on 08/26/2016. There is violetta e slight swelling where we aspirated fluid yesterday. MANAGEMENT: The patient was advised that we need to wait for the culture reports. I am highly susp icious and alarmed that the fluid removed from the thigh actually is pus. The calcium pyrophosphate issue is of interest. There is nothing for us to do today until we get the culture reports. I do not want to aspirate her hip again for fear of introducing infection. She is currently taking antib iotics that I gave her. Dictated By: RODOLFO WESLEY/JOE Conf#: [id number] DID#: [id number]
== END | disposition home or self-care (01) ==
LOC: HKI 14:31
DX: R22.41 Localized swelling, mass and lump, right lower limb (principal); Z96.641 Presence of right artificial hip joint

== ENCOUNTER → 2016-09-02 | Outpatient (CLI) | payer BC ==
--- NOTE | 2016-09-02 20:44 | HKNOTE ---
DATE OF SERVICE: Patient comes in for recheck on her right hip. Over the weekend a small sinus started to drain. PHYSICAL EXAMINATION: There is no local sign of infection. The patient's temperature 98.7. Blood pressure is 135/85. The cultures obtained at both of the last visits were negative for infection. MANAGEMENT: A wound VAC was applied and patient will be seen again on Thursday for reevaluation. Th e wound VAC will need to stay on for as long as necessary until it stops draining. Dictated By: RODOLFO WESLEY/JOE Conf#: [id number] DID#: [id number]
--- NOTE | 2016-09-02 20:45 | HKNOTE ---
DATE OF SERVICE: ADDENDUM The area around the sinus was cleaned with Betadine, cultures were obtained from the sinus, and a wo und VAC was applied. Dictated By: RODOLFO WESLEY/JOE Conf#: [id number] DID#: [id number]
== END | disposition home or self-care (01) ==
LOC: HKI 13:43
DX: Z47.1 Aftercare following joint replacement surgery (principal); Z96.641 Presence of right artificial hip joint
CPT/HCPCS: 97607

== ENCOUNTER → 2016-09-04 | Outpatient (CLI) | payer BC ==
--- NOTE | 2016-09-05 00:28 | HKNOTE ---
DATE OF SERVICE: 09/04/2016 Patient comes in today complaining that the wound VAC "pulled itself off." It did not fill up the c anister, but somehow filled up the dressing, and then under pressure, pulled it off completely. The patient left me a message last night to give her a call, but the message she left was garbled, a nd I could not understand the phone number. The patient admits today that her best friend yest erday and she was crying when she gave me the call PHYSICAL EXAMINATION: Temperature is 98.6. No external sign of infection or inflammation around th e sinus area. The Band-Aids that she put over the draining sinus were removed. It shows that there is still continuing drainage. New cultures were obtained today. A new wound VAC was applied, and she will be seen again on Thursday for reevaluation. She enough antibiotics, to continue. Dictated By: RODOLFO WESLEY/JOE Conf#: [id number] DID#: [id number]
== END | disposition home or self-care (01) ==
LOC: HKI 13:35
DX: Z47.89 Encounter for other orthopedic aftercare (principal)

== ENCOUNTER → 2016-09-09 | Outpatient (CLI) | payer BC ==
--- NOTE | 2016-09-10 07:44 | HKNOTE ---
DATE OF SERVICE: The patient comes in for a recheck of her wound. The wound VAC has not drained very much. There is no swelling of her thigh. The wound VAC is still very much operative. The patient's temperature i s 98.5. She has no pain. MANAGEMENT: The patient being sent for CBC, sedimentation rate, and C-reactive protein. She will b e seen again on , when we will probably remove and change the wound VAC dressing. Dictated By: RODOLFO WESLEY/JOE Conf#: [id number] DID#: [id number]
== END | disposition home or self-care (01) ==
LOC: HKI 13:31
DX: Z47.1 Aftercare following joint replacement surgery (principal); Z96.641 Presence of right artificial hip joint

== ENCOUNTER → 2016-09-11 | Outpatient (CLI) | payer BC ==
--- NOTE | 2016-09-11 18:17 | HKNOTE ---
DATE OF SERVICE: 09/11/2016 The patient comes in with her wound VAC and wound for recheck. The cultures obtained at the last vi sit have so far been negative for bacterial growth. Blood work at the last visit showed a white ce ll count is 6.6. Sedimentation rate 9. C-reactive protein was 0.1. The wound VAC was removed. There is not much drainage in the wound VAC but once it was removed the wound VAC pad, there is a great deal of drainage from the site. New cultures were obtained and as m uch fluid as possible was expressed from the wound (probably 20 mL). A new wound VAC was applied a nd she will be seen again on Thursday for reevaluation. Dictated By: RODOLOF WESLEY/JOE Conf#: [id number] DID#: [id number]
--- NOTE | 2016-09-15 10:43 | QN ---
Documentation Comment HPI: Patient presents on 09/15/16 after having consistent suction noise over the weekend to wound vac. She turned the wound vac off, and when she woke up the next morning (Thursday) she has fluid showing through the adhesive safeguard of the wound vac. She does state that there is less drainage compared to the past. Has completed abx regimen and past wound culture was negative. PE AAOx3 Wound site is c/d/i. Appearance of contact dermatitis at area of adhesive. No pain/tenderness to palpation. A/P -Replacement pad placed today more distal this time to avoid further skin irritation/dermatitis. -Advised Benadryl 25mg TID as patient does have c/o pruritis to area of skin irritation. May also use topical OTC hydrocortisone to irritated area but NOT over or near wound. -Lengthy discussion had with the patient regarding compliance. 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 It was conveyed that there is concern that her physical exertion may be inviting risk of perspiration, increased fluid production and overall delayed healing. Also she states that she "stopped" the wound vac this past weekend because of consistent sound but after the specific sound was identified (when wound vac was turned on in office again today) that is the sound of the normal suction/negative pressure, which is what we what in order to remove fluid. It was advised to only verbally communicate instruction at work now to reduce risk of complication. manager of learning was present in the beginning of exam to make the patient aware of the potential issues of billing as she has had multiple replacement wound vacs and she is aware. -She will f/u tomorrow for repeat eval with Dr. Henao. MALLORY HINES PA-C Sep 15, 2016 10:42
== END | disposition home or self-care (01) ==
LOC: HKI 13:32
DX: Z47.89 Encounter for other orthopedic aftercare (principal); L25.9 Unspecified contact dermatitis, unspecified cause
CPT/HCPCS: 97607

== ENCOUNTER → 2016-09-15 | Outpatient (CLI) | payer BC ==
--- NOTE | 2016-09-15 12:02 | PN ---
Date/Time of Note Date/Time of Note DATE: 09/15/16 TIME: 11:59 Assessment/Plan VTE Prophylaxis VTE Prophylaxis Intervention: ambulation Assessment/Plan Assessment/Plan -Replacement pad placed today more distal this time to avoid further skin irritation/dermatitis. -Advised Benadryl 25mg TID as patient does have c/o pruritis to area of skin irritation. May also use topical OTC hydrocortisone to irritated area but NOT over or near wound. -Lengthy discussion had with the patient regarding compliance. 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 It was conveyed that there is concern that her physical exertion may be inviting risk of perspiration, increased fluid production and overall delayed healing. Also she states that she "stopped" the wound vac this past weekend because of consistent sound but after the specific sound was identified (when wound vac was turned on in office again today) that is the sound of the normal suction/negative pressure, which is what we what in order to remove fluid. It was advised to only verbally communicate instruction at work now to reduce risk of complication. junior account manager was present in the beginning of exam to make the patient aware of the potential issues of billing as she has had multiple replacement wound vacs and she is aware. -She will f/u tomorrow for repeat eval with Dr. Henao. Subjective 24 Hr Interval Summary Free Text/Dictation Patient presents on 09/15/16 after having consistent suction noise over the weekend to wound vac. She turned the wound vac off, and when she woke up the next morning (Thursday) she has fluid showing through the adhesive safeguard of the wound vac. She does state that there is less drainage compared to the past. Has completed abx regimen and past wound culture was negative. Has c/o pruritis around the wound. Exam/Review of Systems Exam AAOx3 Wound site is c/d/i. Appearance of contact dermatitis at area of adhesive. No pain/tenderness to palpation. Constitutional: alert, oriented, well developed Psych: no complaints MALLORY HINES PA-C Sep 15, 2016 12:02
== END | disposition home or self-care (01) ==
LOC: HKI 11:33
DX: Z47.1 Aftercare following joint replacement surgery (principal); Z96.641 Presence of right artificial hip joint; L30.9 Dermatitis, unspecified

== ENCOUNTER → 2016-09-16 | Outpatient (CLI) | payer BC ==
--- NOTE | 2016-09-16 22:21 | HKNOTE ---
DATE OF SERVICE: 09/16/2016 Patient comes in for a wound check. Over the weekend she complained that there was constant noise co tameka from the wound VAC. She was advised to turn it off. She returned to the office yesterday where Wagner changed the dressing on the wound VAC. PHYSICAL EXAMINATION: VITAL SIGNS: The patient's temperature is 98.5. Not the slightest sign of infection or inflammation anywhere around the wound VAC dressing. No swell ing noted. There is minimal drainage into the wound VAC unit. MANAGEMENT: The patient will continue to wear the wound VAC until there is absolutely no drainage. She will be seen again on Thursday for reevaluation. Dictated By: RODOLFO WESLEY/JOE Conf#: [id number] DID#: [id number]
== END | disposition home or self-care (01) ==
LOC: HKI 13:29
DX: Z48.00 Encounter for change or removal of nonsurgical wound dressing (principal); Z96.641 Presence of right artificial hip joint

== ENCOUNTER → 2016-09-23 | Outpatient (CLI) | payer BC ==
--- NOTE | 2016-09-29 22:15 | HKNOTE ---
DATE OF SERVICE: 09/23/2016 The patient returns for reassessment of the drainage from her right hip. She indicates that there has been no drainage at all from the pump since she last saw me. On examination, her temperature 98.5. There is no external sign of infection or inflammation. The pad was removed from her thigh. Indeed, there is no drainage into the pump at all. It is quite possible that the suction from the wound VAC is causing a flap effect, which is blocking off the flow of fluid into the wound VAC. MANAGEMENT: The patient will be admitted to the [facility] as an outpatient for a n exchange of wound VAC as well as for irrigation and drainage as well as assessment of the depth of the pocket that the fluid is coming from, as well as for obtaining new cultures and sensitivities f rom the hip. All of this was discussed with her in detail. I do believe that there was some kind o f a flap valve taking place. I will probably to pack the wound with iodoform gauze or plain gauze i n order to keep the flow coming. Note that there is actually no external sign of infection or infla mmation around her hip and the cultures from the last visit were entirely negative. Dictated By: RODOLFO WESLEY/JOE Conf#: [id number] DID#: [id number]
== END | disposition home or self-care (01) ==
LOC: HKI 13:34
DX: Z47.1 Aftercare following joint replacement surgery (principal); Z96.641 Presence of right artificial hip joint
CPT/HCPCS: 97607

== ENCOUNTER 2016-09-25 05:42 | Day surgery (SDC) | payer BC ==
[2016-09-25] VITALS (10 sets, daily range): BP systolic 101–123; BP diastolic 64–78; PULSE 78–88; RESP 12–18; Ht 160 cm; Wt 58.5 kg
[~2016-09-25] VITALS: Ht 160 cm; Wt 58.5 kg
[2016-09-25] MEDS ORDERED: LANSOPRAZOLE 30 MG CAP PO ONE (06:00)
[2016-09-25] MEDS ORDERED: VANCOMYCIN 1 GM (PMX) 250 ML IVPB ONE (06:00)
[2016-09-25] MEDS ORDERED: DEXAMETHASONE 4 MG/ML 1 ML INJ IV ONE (06:00)
[2016-09-25] MEDS ORDERED: oxyCODONE (CR) 10 MG TAB [oxyCONTIN] PO ONE (06:00)
[2016-09-25] MEDS ORDERED: ONDANSETRON 4 MG INJ IV ONE (06:00)
[2016-09-25] MEDS ORDERED: ACETAMINOPHEN 1000MG/100ML IV 100 ML IVPB ONE (06:00)
[2016-09-25] MEDS ORDERED: LACTATED RINGER'S 1,000 ML IV* SCH (06:00)
[2016-09-25 06:27] LABS: ADD SCAN DIFF NO
[2016-09-25 06:32] LABS: BASOPHILS % 0.4 % (0.0-2.0); EOSINOPHILS # 0.4 10^3/ul (0.0-0.5); EOSINOPHILS % 7.6 % (0.0-7.0); HEMATOCRIT 37.3 % (37.0-47.0); HEMOGLOBIN 12.8 g/dl (12.0-16.0); LYMPHOCYTES % 41.3 % (15.0-51.0); MEAN CORPUSCULAR HEMOGLOBIN 34.4 pg (29.0-33.0); MEAN CORPUSCULAR HGB CONC 34.3 g/dl (32.0-37.0); MEAN CORPUSCULAR VOLUME 100.3 fl (82.0-101.0); MEAN PLATELET VOLUME 9.2 fl (7.4-10.4); MONOCYTE # 0.5 10^3/ul (0.3-0.9); MONOCYTES % 9.5 % (0.0-11.0); PLATELET COUNT 267 10^3/UL (140-415); RED BLOOD COUNT 3.72 10^6/ul (4.20-5.40); RED CELL DISTRIBUTION WIDTH 13.4 % (11.5-14.5); WHITE BLOOD COUNT 4.8 10^3/ul (4.8-10.8)
--- NOTE | 2016-09-25 06:39 | HPN ---
Date/Time of Note Date/Time of Note DATE: 09/25/16 TIME: 06:39 Interval H&P Admission Note Pt. seen H&P reviewed: No system changes MALLORY HINES PA-C Sep 25, 2016 06:39
[2016-09-25 06:54] LABS: INR 0.94; PROTIME 12.6 Sec (12.2-14.2)
[2016-09-25 06:55] LABS: PARTIAL THROMBOPLASTIN TIME 26.5 Sec (25.0-35.0)
[2016-09-25 07:04] LABS: ALBUMIN 3.7 g/dl (3.3-4.9)
[2016-09-25 07:06] LABS: BILIRUBIN,INDIRECT 0.4 mg/dl (0-1.1); BILIRUBIN,TOTAL 0.4 mg/dl (0.2-1.3)
[2016-09-25 07:07] LABS: ALBUMIN/GLOBULIN RATIO 1.12
[2016-09-25] MEDS ORDERED: VANCOMYCIN 1 GM INJ ONE (07:09)
[2016-09-25] MEDS ORDERED: POLYMYXIN B 500000 UNIT INJ ONE (07:09)
[2016-09-25 07:11] LABS: CALCIUM 9.3 mg/dl (8.4-10.2); CREATININE 0.58 mg/dl (0.44-1.00); POTASSIUM 3.3 mmol/L (3.5-5.1)
[2016-09-25] MEDS ORDERED: BACITRACIN 50000 UNITS INJ ONE (07:13)
[2016-09-25] MEDS ORDERED: MIDAZOLAM 1 MG/ML 2 ML INJ ONE (07:17)
[2016-09-25] MEDS ORDERED: PROPOFOL 20 ML ONE (07:17)
[2016-09-25] MEDS ORDERED: FENTAnyl 50 MCG/ML VIAL ONE (07:18)
[2016-09-25] MEDS ORDERED: PHENYLephrine (100 MCG/ML) 5ML SYG ONE (07:59)
[2016-09-25] MEDS ORDERED: KETOROLAC 30 MG INJ ONE (08:10)
[2016-09-25] MEDS ORDERED: DEXAMETHASONE 4 MG/ML 1 ML INJ ONE (08:10)
[2016-09-25] MEDS ORDERED: METOCLOPRAMIDE 10 MG INJ ONE (08:10)
[2016-09-25] MEDS ORDERED: ONDANSETRON 4 MG INJ ONE (08:10)
[2016-09-25] MEDS ORDERED: DIPHENHYDRAMINE 50 MG INJ IV PRN (08:30)
[2016-09-25] MEDS ORDERED: HYDROmorphONE (0.2 MG/ML) 10ML SYG IV PRN ×3 (08:30)
[2016-09-25] MEDS ORDERED: METOCLOPRAMIDE 10 MG INJ IV PRN (08:30)
[2016-09-25] MEDS ORDERED: morphine (1 MG/ML) 10ML SYRINGE IV PRN ×3 (08:30)
[2016-09-25] MEDS ORDERED: MEPERIDINE 25 MG INJ IV PRN (08:30)
[2016-09-25] MEDS ORDERED: ONDANSETRON 4 MG INJ IV PRN (08:30)
--- NOTE | 2016-09-25 09:08 | PDOCDIS ---
Discharge Instructions DIAGNOSIS Discharge Diagnosis: status post Incision and drainage of right thigh wound CONDITION Patient Condition: Stable HOME CARE INSTRUCTIONS: Diet Instructions: Regular ACTIVITY: Activity Restrictions: No Restrictions Bathing Restrictions: Shower (keep area of Incision and Drainage dry with dressing provided.) FOLLOW UP/APPOINTMENTS Appointments Follow up in Clinic on 09/30/[address] Henao for post-op visit. Rx for amoxicillini given today. MALLORY HINES PA-C Sep 25, 2016 09:08
[2016-09-25 10:22] LABS: LYMPHOCYTES,SYNOVIAL FLUID 17; NEUTROPHILS,SYNOVIAL FLUID 76 % (0-25); SYNOVIAL FLUID CLARITY Bloody; SYNOVIAL FLUID COLOR Red; SYNOVIAL FLUID WBC 5568 /cmm (0-150)
--- NOTE | 2016-09-25 11:10 | OPR ---
DATE OF OPERATION: 09/25/2016 PREOPERATIVE DIAGNOSIS: Draining sinus from right thigh following right total hip replacement. POSTOPERATIVE DIAGNOSIS: Draining sinus from right thigh following right total hip replacement. PROCEDURE PERFORMED: 1. Incision and drainage of pocket of fluid over the right thigh and probing of the area. 2. Irrigation washout. 3. Application of wound VAC. SURGEON: Jett Henao MD FOREIGN CLERK: ISAMAR Tan FINDINGS AT SURGERY: The sinus was almost completely closed and had to be opened with an 11 blade. A small amount of clear fluid came out of the sinus as it was opened. This was sent to the lab for immediate Gram stain. The report was that there were polymorphs present but no bacteria seen. The wound was probed and the extent of the wound was found to be about perhaps 2 inches in each directi on subcutaneously. There was no deep penetration of the wound. DESCRIPTION OF PROCEDURE: Under general anesthetic, the right thigh was prepared and draped in the usual sterile fashion. A small incision was made at the site of the former sinus. As noted above, a small amount of clear yellow fluid came out of the wound. Probing was carried out using a 14-Fren ch catheter. This was in an attempt to not open up any tissue planes that were not already opened. The extent of the wound was probed, while we waited for the lab to give us the result of the Gram s tain. Using a low pressure on the pulsatile lavage, the wound was thoroughly irrigated with triple antibiotic solution. The wound was now packed with 1/4-inch ribbon gauze. A wound VAC was now appl ied in the usual manner. The patient returned to the recovery room in satisfactory condition. Ther e were no problems or complications as far as is known. The wound VAC was found to be functioning n ormally before she left the recovery room. Dictated By: JETT WESLEY/JOE Conf#: [id number] DID#: [id number]
[2016-09-25 13:32] LABS: LYMPHOCYTES,SYNOVIAL FLUID 33; NEUTROPHILS,SYNOVIAL FLUID 53 % (0-25)
[2016-09-25 13:34] LABS: SYNOVIAL FLUID CLARITY Bloody; SYNOVIAL FLUID COLOR Red; SYNOVIAL FLUID WBC 4696 /cmm (0-150)
--- NOTE | 2016-09-30 18:59 | HP ---
DATE OF ADMISSION: 09/25/2016 (Admission for outpatient surgery on 09/26/2016). HISTORY OF PRESENT ILLNESS: The patient is a 56-year-old female who underwent a right total hip rep lacement on 09/15/2016. The patient recently underwent a right total hip replacement. A few weeks after the surgery, she de veloped a small swelling on the lateral aspect of the right thigh. She refused to allow me to aspir ate the swelling. A few days later, the swelling burst and produced a copious amount of fluid. Since then she has been treated with a wound VAC in order to keep the deep wound free of fluid. We have had constant problems with wound VAC for unknown reasons. Perhaps there has been mechanical failure of the device. 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 The most recent wound VAC applied a few days ago drained no fluid whatsoever from the hip, but there has been increasing swelling of the thigh again. The patient will be admitted tomorrow as an outpatient for incision of the sinus site, which seems t o be sealing over, exploration of the sinus site to determine the depth of the wound, culture and se nsitivity of the fluid from the wound, immediate Gram stain will be obtained. If there is any sign of bacterial infection, then a full on open irrigation, washout of the wound will be needed. The ja barney understands this. Note that cultures have been obtained at each visit since her surgery and a ll the cultures so far have been negative. PHYSICAL EXAMINATION: VITAL SIGNS: The patient's temperature is 98.1. Blood pressure 130/90. EXTREMITIES: Examination of the wound is currently under a fully activated wound VAC dressing. The surrounding tissue has no sign whatsoever of infection. Temperature is 98.1. All the above was discussed with the patient. Note that she is very anxious to get rid of the wound VAC since she is getting in a couple of weeks and each visit she makes to the office, she h as a meltdown when I advise her that we have to wait a further length of time for the drainage to ce ase. Dictated By: RODOLFO WESLEY/JOE Conf#: [id number] DID#: [id number]
== END 2016-09-25 10:52 | disposition home or self-care (01) ==
LOC: SDS 05:42
DX: L76.34 Postprocedural seroma of skin and subcutaneous tissue following other procedure (principal); Y83.8 Other surgical procedures as the cause of abnormal reaction of the patient, or of later complication, without mention of misadventure at the time of the procedure; Y92.89 Other specified places as the place of occurrence of the external cause
CPT/HCPCS: 10140; 80053; 85025; 85610; 85730; 87070; 89051; J0131; J1100; J1885; J2250; J2405; J2765; J3010; J3370; J7120; J2370

== ENCOUNTER → 2016-09-30 | Outpatient (CLI) | payer BC ==
--- NOTE | 2016-09-30 13:52 | PN ---
Date/Time of Note Date/Time of Note DATE: 09/30/16 TIME: 13:48 Outpatient Progress Note Chief Complaint Status post right hip incision and drainage performed on 09/25/2016. HPI 56-year-old female presents today for postoperative visit status post right hip incision and drainage due to sinus tract that developed after right total hip arthroplasty. Incision and drainage performed on 09/25/2016 and total hip arthroplasty on the right side performed on 07/04/2016. Patient has had multiple wound vacs placed with mild to moderate fluid drainage. Fluid drainage Continuing to the right hip which led to incision and drainage. Patient had significant amount of fluid drainage status post surgery in which wound VAC canister filled up within the first 24 hours. Patient was seen over the weekend, 09/27/2016, by Dr. Henao to replace canister due to significant fluid buildup in wound VAC. Patient states that she has been doing well. She does have soreness directly over incision site but no increased redness, discharge or erythema. Denies any complications status post incision and drainage. Review of Systems Const: No Fever, no chills, no Fatigue, normal appetite, no diaphoresis. Resp: No SOB, no wheezing, no chest pain. CV: No chest pain, no palpitaions, no CISNEROS. Physical Exam Blood pressure is 132/88, temperature 98.1, pulse 99, respiratory rate 12, height 5 feet, weight 120 pounds. General Appearance: well-developed, well-nourished, in no acute distress. Right hip/thigh: Wound site is clean dry and intact. Incision site showing no signs of infection. No significant redness or erythema. There is fluid present in wound VAC canister. Patient is flexing and extending hip normally. Slight limp with ambulation. No painful gait. 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 Assessment/Plan * Continues to do well. * Wound care discussed in detail today. * Replacement wound VAC canister provided today. * Follow-up 1 week for repeat evaluation and wound check. Patient seen and evaluated with Dr. Henao today. Dr. Henao agrees with plan. Medications Home Meds Reported Medications Ibuprofen* (Advil*) 200 Mg Capsule, 400 MG PO Q6H Y for PAIN, CAP 07/03/16 MALLORY HINES PA-C Sep 30, 2016 13:52
== END | disposition home or self-care (01) ==
LOC: HKI 13:33
DX: Z47.1 Aftercare following joint replacement surgery (principal); Z96.641 Presence of right artificial hip joint

== ENCOUNTER → 2016-10-02 | Outpatient (CLI) | payer BC ==
--- NOTE | 2016-10-08 21:57 | HKNOTE ---
DATE OF SERVICE: 10/02/2016 These notes are being dictated a week later and of are being dictated from memory. This patient has been coming frequently and I am not able to remember the details of her visit for that day, other t butts that her temperature is 98.6. Cultures from 09/29/2016 were reviewed. These showed "moderate g maritza-negative bacilli and many white cells." She was afebrile and her wound looked very much better. There is no external sign of infection or inflammation. She is currently on an antibiotic and the re does not appear to be any indication for more aggressive approach to these antibiotic findings. I am not totally certain if this was a day on which we changed out her wound VAC. The patient was severiano herndon an appointment to return. Her progress appeared to be good. The wound area appeared to be uni nfected and she will be seen again in a few days' time for reevaluation. Dictated By: RODOLFO WESLEY/JOE Conf#: [id number] DID#: [id number]
== END | disposition home or self-care (01) ==
LOC: HKI 15:59
DX: Z47.89 Encounter for other orthopedic aftercare (principal)
CPT/HCPCS: 97607

== ENCOUNTER → 2016-10-07 | Outpatient (CLI) | payer BC ==
--- NOTE | 2016-10-07 17:04 | PN ---
Date/Time of Note Date/Time of Note DATE: 10/07/16 TIME: 16:58 Outpatient Progress Note Chief Complaint Follow-up wound check status post right hip incision and drainage on 10/05/2016. HPI 56-year-old female presents today for wound check status post incision and drainage on 09/25/2016. Patient was seen last week where reapplication of wound VAC was placed. Patient states that minimal drainage was achieved over the past week. Denies any pain complaints. Walking independently. Normal strength of the leg. Presents today for wound check. Review of Systems Const: No Fever, no chills, no Fatigue, normal appetite, no diaphoresis. Resp: No SOB, no wheezing, no chest pain. CV: No chest pain, no palpitaions, no CISNEROS. Physical Exam General Appearance: well-developed, well-nourished, in no acute distress. Right hip: After removal of wound VAC, skin is clean dry and intact. Epithelialization is seen over incision site. No drainage is achieved while trying to extract fluid. Healing well. No tenderness to palpation. Full range of motion to the right hip. Labs: Labs that were drawn last week on 09/29/2016 are showing "moderate growth of Pseudomonas Aeruginosa". Sensitivity to ciprofloxacin. 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 Assessment/Plan * Wound VAC may be discontinued at this time, per instructions from Dr. Henao. * Patient may follow-up in 6 months postop right total hip replacement on 2016. * Prescription for ciprofloxacin 500 mg 1 tab p.o. twice daily 7 days #14 tablets provided today. Patient was advised to follow-up after completion of antibiotics but she states that she will be out of the [place]. It was strongly advised that should she experience any complications prior or after return from trip, to follow-up in office immediately. Patient was also advised to call into the office should she notice any complications so that possible consult telephonically can at least be achieved and possible triage to healthcare provider in the area that she will be at that time. She states understanding and compliance. Dr. Henao was present for examination and agrees with plan. Medications Home Meds Reported Medications Ibuprofen* (Advil*) 200 Mg Capsule, 400 MG PO Q6H Y for PAIN, CAP 07/03/16 MALLORY HINES PA-C Oct 07, 2016 17:04
== END | disposition home or self-care (01) ==
LOC: HKI 13:35
DX: Z47.89 Encounter for other orthopedic aftercare (principal)